=== PATIENT | female | born 1965 | race Caucasian/White ===

== ENCOUNTER 2016-07-05 20:45 | Emergency (ER) | payer OTHER ==
[~2016-07-05] VITALS: Ht 162.6 cm; Wt 70.4 kg
[~2016-07-05 20:45] MED LIST: ESTR0.5T PO; PREG50CA PO; TRAM50TA4 PO
--- NOTE | 2016-07-05 20:45 | NUR ---
TRIAGE NOTE PT BROUGHT TO ED BY [facility] FROM HER TRUCK THAT WAS ON [place]IDE OF THE [place]. PT IS VISITING HER DAUGHTER WHO LIVES IN [place] WHEN SHE STARTED GETTING A MIGRAINE. PT HAS MIGRAINES FREQUENTLY AND SHE IS CURRENTLY OUT OF [facility]. SHE STARTED HAVING THE PAIN ABOUT 4-5 HOURS AGO AND THE PAIN IS ON THE RIGHT SIDE OF HER HEAD. EMS REPORTS A WELDING MACHINE TENDER FOUND HER LAYING IN HER TRUCK ALONG THE H[place] ON HER WAY HERE. SHE REPORTS SHE DEVELOPED PHOTO AND SOUND SENSITIVITY AND COULD NO LONGER DRIVE. EMS STARTED IVL IN THE LEFT AC AND IV NS INFUSING, 300CC INFUSED LOGISTICS SUPPLY OFFICER PT WAS ALSO GIVEN ZOFRAN 4MG IV AND FENTANYL 50MG IV BY EMS LOGISTICS SUPPLY OFFICER [facility]
--- OUTSIDE RECORDS SUMMARY | 2016-07-05 20:49 | XMS REPORT | Continuity of Care Document ---
Author Author [facility] Organization [facility] Address Unknown Phone Unavailable Support Name Relationship Address Phone ROBIN VASQUEZ DO Caregiver [facility] [address] [place] [address] THOMAS SAMSON Next Of Kin [address] [place] [address] CP Insurance Providers Payer Name Policy Number Subscriber Name Relationship [employer] Ppo/Open Choice [id number] Lynnette Sinclair 17 Self Advance Directives Directive Response Recorded Date/Time Advanced Directives Type None 10/19/13 5:50pm Problems Medical Problems Problem Onset Date Status Headache Unknown Active Headache Unknown Active Medications Medication Dose Route Sig Days/Qty Instructions Order Date Discontinued Date Status Tramadol HCl 1 Tab PO FOUR TIMES DAILY Take 1 tablet, by mouth, 4 times a day. 10/19/13 Active Estradiol 1 Tab PO DAILY 10/19/13 Active Pregabalin 50 Mg PO NEEDED 10/19/13 Active Social History Social History Problem Response Recorded Date/Time Smoking Status Never smoker 10/19/2013 7:40pm Hx Alcohol Use Yes 10/19/2013 7:40pm Hospital Discharge Instructions No hospital discharge instructions. Plan of Care No plan of care. Functional Status Query Response Date Recorded Physical Hygiene Self October 19, 2013 7:40pm Disabilities None October 19, 2013 7:40pm Devices Used None October 19, 2013 7:40pm Dressing Self October 19, 2013 7:40pm Ambulation Self October 19, 2013 7:40pm Diet Self October 19, 2013 7:40pm Mental Status Alert October 19, 2013 7:43pm Disabilities None October 19, 2013 7:40pm Devices Used None October 19, 2013 7:40pm Physical Hygiene Self October 19, 2013 7:40pm Dressing Self October 19, 2013 7:40pm Ambulation Self October 19, 2013 7:40pm Diet Self October 19, 2013 7:40pm Allergies, Adverse Reactions, Alerts Allergen Type Severity Reaction Status Last Updated No Known Allergies Active 10/19/13 Immunizations Name Given Type Hx Influenza Vaccination No Historical Hx Influenza Vaccination No Historical Vital Signs Acute Vital Signs Vital Response Date/Time Temperature (Fahrenheit) 95.3 deg F (96.8 - 99.1) Temperature (Calculated Celsius) 35.73084 degrees C (36.0 - 37.3) Pulse Rate (adult) 66 bpm (60 - 100) Respiratory Rate 18 breaths/min (10 - 20) O2 Sat by Pulse Oximetry 98 % (90 - 100) Blood Pressure 144/80 mm Hg Height 5 ft 4 in Weight 144 lb Body Mass Index 24.0 kg/m^2 Results Test Source Date Result Interp. Ref. Range Comments Alanine Aminotransferase (ALT/SGPT) October 19, 2013 6:26pm 37 U/L N 9- 52 Albumin October 19, 2013 6:26pm 4.5 G/DL N 3.5-5.0 Albumin/Globulin Ratio October 19, 2013 6:26pm 1.7 RATIO N 1.1-2.2 Alkaline Phosphatase October 19, 2013 6:26pm 112 U/L N 38-126 Anion Gap October 19, 2013 6:26pm 13 MEQ/L N 5-15 Aspartate Amino Transf (AST/SGOT) October 19, 2013 6:26pm 24 U/L N 14-36 BUN/Creatinine Ratio October 19, 2013 6:26pm 16 RATIO N 6-26 Basophils # (Auto) October 19, 2013 6:26pm 0.0 T/MM3 N 0-0.2 Basophils (%) (Auto) October 19, 2013 6:26pm 0.7 % N 0-2 Blood Urea Nitrogen October 19, 2013 6:26pm 11.0 MG/DL N 7-17 C-Reactive Protein October 19, 2013 6:26pm < 5.0 MG/L 0-9 Calcium Level October 19, 2013 6:26pm 9.4 MG/DL N 8.4-10.2 Calculated Osmolality October 19, 2013 6:26pm 280 MOSM/KG N 261-280 Carbon Dioxide Level October 19, 2013 6:26pm 31 MEQ/L H 22-30 Chloride Level October 19, 2013 6:26pm 102 MEQ/L N 98-107 Creatinine October 19, 2013 6:26pm 0.7 MG/DL N 0.7-1.2 Eosinophils # (Auto) October 19, 2013 6:26pm 0.1 T/MM3 N 0-0.5 Eosinophils (%) (Auto) October 19, 2013 6:26pm 1.7 % N 0-4 Erythrocyte Sedimentation Rate October 19, 2013 6:26pm 8 MM/HR N 0-20 Globulin October 19, 2013 6:26pm 2.7 G/DL N 2.4-3.6 Glucose Level October 19, 2013 6:26pm 105 MG/DL N 65-110 Hematocrit October 19, 2013 6:26pm 39.6 % N 36-46 Hemoglobin October 19, 2013 6:26pm 13.5 GM/DL N 12-16 Lymphocytes # (Auto) October 19, 2013 6:26pm 2.1 T/MM3 N 1-4.8 Lymphocytes (%) (Auto) October 19, 2013 6:26pm 34.3 % N 23-45 Mean Corpuscular Hemoglobin October 19, 2013 6:26pm 32.3 UUG N 26-34 Mean Corpuscular Hemoglobin Concent October 19, 2013 6:26pm 34.1 GM/DL N 31-37 Mean Corpuscular Volume October 19, 2013 6:26pm 94.7 UM3 N 80-100 Mean Platelet Volume October 19, 2013 6:26pm 10.1 UM3 N 9.4-12.4 Monocytes # (Auto) October 19, 2013 6:26pm 0.5 T/MM3 N 0-0.8 Monocytes (%) (Auto) October 19, 2013 6:26pm 7.7 % N 0-9.0 Neutrophils # (Auto) October 19, 2013 6:26pm 3.3 T/MM3 N 1.8-7.7 Neutrophils (%) (Auto) October 19, 2013 6:26pm 55.4 % N 33-66 Platelet Count October 19, 2013 6:26pm 244 T/MM3 N 130-400 Potassium Level October 19, 2013 6:26pm 3.7 MEQ/L N 3.6-5 RDW Standard Deviation October 19, 2013 6:26pm 44.3 FL N 36.9-50.2 Red Blood Count October 19, 2013 6:26pm 4.18 M/MM3 N 4.00-5.20 Sodium Level October 19, 2013 6:26pm 146 MEQ/L H 134-144 Total Bilirubin October 19, 2013 6:26pm 0.40 MG/DL N 0.20-1.30 Total Protein October 19, 2013 6:26pm 7.2 G/DL N 6.3-8.2 White Blood Count October 19, 2013 6:26pm 6.0 T/MM3 N 4.5-11.0 Chemistry Specimen Hemolysis October 19, 2013 6:26pm < 15 0-25 0-25: No Hemolysis.26-70: Slight Hemolysis - can falsely elevate K and Urine Protein. 71-285: Moderate Hemolysis - can falsely elevate K, Troponin I, CA 19-9, PTH, CSF GLucose, and Urine Protein, and can falsely decrease Phenytoin. 286-999: Gross Hemolysis - can falsely elevate K, Troponin I, CA 19-9, PTH, CSF Glucose, and Urine Protine, and can falsely decrease Phenytoin. Recommend specimen recollection. Turbidity October 19, 2013 6:26pm < 20 0-20 Glomerular Filtration Rate Calc October 19, 2013 6:26pm 89 - Immature Granulocyte # (Auto) October 19, 2013 6:26pm 0.01 T/MM3 N 0.00- 0.03 Immature Granulocyte % (Auto) October 19, 2013 6:26pm 0.2 % N 0.0-0.5 Icterus Index October 19, 2013 6:26pm < 2 0-7 Procedures No known history of procedures. Encounters Encounter Location Date/Time Departed Emergency Room [facility] 10/19/13 5:43pm Recent Diagnosis
[2016-07-05 20:54] VITALS: TEMP 97.5; Ht 162.6 cm; Wt 70.4 kg
[2016-07-05] MEDS ORDERED: DiphenhydrAMINE 50 MG/ML INJECTION IV ONE (21:15)
[2016-07-05] MEDS ORDERED: PROMETHAZINE 25 MG INJECTION IV ONE (21:15)
[2016-07-05] MEDS ORDERED: BUTALBITAL/APAP/CAFFEINE TABLET PO ONE (21:15)
--- OUTSIDE RECORDS SUMMARY | 2016-07-05 21:18 | XMS REPORT | Continuity of Care Document ---
Author Author [facility] Organization [facility] Address Unknown Phone Unavailable Support Name Relationship Address Phone ROBIN VASQUEZ DO Caregiver [facility] [address] [place] [address] THOMAS SAMSON Next Of Kin [address] [place] [address] CP Insurance Providers Payer Name Policy Number Subscriber Name Relationship [employer] Ppo/Open Choice [id number] Lynnette Sinclair 17 Self Advance Directives Directive [...] F (96.8 - 99.1) Temperature (Calculated Celsius) 35.23394 degrees C (36.0 - 37.3) Pulse Rate [...] Encounters Encounter Location Date/Time Departed Emergency Room [facility] 10/19/13 5:43pm Recent Diagnosis
--- NOTE | 2016-07-05 21:33 | ERPDOC ---
Departure Disposition Decision Date: July 05, 2016 Disposition Decision Time: 22:52 Disposition: 01 DISCHARGED HOME, SELF-CARE Impression Impression Impression: Primary Impression: Migraine headache Qualified Codes: G43.111 - Migraine with aura, intractable, with status migrainosus Severity: Severe Condition: Improved Seen By: Physician only Referrals: YOUR PHYSICIAN 1 Week Patient Instructions: Migraine Headache (ED) Problems/Meds/Labs Reviewed?: Yes Medications reviewed and manag: Yes Additional Instructions: Your migraine has been treated. Take the imitrex at the first sign of a migraine ; uses the zofran as needed for nausea. Follow up care ordered?: Yes Mental Status: Alert, Oriented Scripts Ondansetron (Ondansetron Odt) 4 Mg Tab.rapdis 1 TAB PO Q6-8HPRN, #16 TAB Prov: DO 07/05/16 Sumatriptan Succinate (Sumatriptan Succinate) 50 Mg Tablet 50 MG PO PRN, #9 TAB Prov: DO 07/05/16 HPI - Headache General Chief Complaint: Headache Stated Complaint: MIGRAINE Time Seen by Provider: 21:09 Source: patient, family Exam Limitations: no limitations HPI - Headache Initial Comments 50yo woman presented to the ER by EMS for migraine MORAN. Pt has been driving all day from [place] to see her daughter in [place], [place]. After passing [place], the MORAN got precipitously worse. Pt pulled over and the [employer] retail loan officer evaluated pt, then called EMS to transport her to [facility]. Pt has had a few migraine MORAN's, rarely. This is similar to her prior HAs. Occurred At: other Onset: Rapid Duration: 4-6 hrs Pain Scale: Now & Worst: 10/10 Severity/Quality: severe, pressure, throbbing Location: temporal, occipital Prior Headaches/Recent Trauma: occasional headaches Modifying Factors: immobilization, medication, rest, No: exposure to light, movement Associated Symptoms: nausea/vomiting Hx of Similar Symptoms: Yes Allergies: Coded Allergies: No Known Allergies (Unverified , 07/05/16) Past History Past Medical History Neurological: migraines, other Musculoskeletal: back pain Surgical History General: appendix Reproductive/: , hysterectomy Family History Family PMH: FOUND: hypertension Vaccines Hx Influenza Vaccination: No Review of Systems GI Upper Abdomen: nausea, vomiting Neurological General: headache All other Systems All Other Systems: Reviewed and Negative Physical Exam General General Nourishment: well nourished, well developed, appears stated age, no acute distress, adult, obese General Body Habitus: well groomed Vitals and Pain Weight: Kilograms: Height (feet): 5 Height (inches): 4 Triage Pain Scale: RN VS reviewed by Provider: Yes Normal Exams: Head: Normocephalic w/o trauma Eyes: Pupils are PERRLA w/ EOMI, No scleral icterus, irritation ENMT: No facial trauma, nasal exudates, pharyngeal erythema Neck: Full range of motion, without adenopathy, JVD Chest/Resp: Clear all bailon, with good airflow, and symmetry bilaterally CV: Regular rate and rhythm, without murmur or gallop, Pulses 2+ all extremities Lymphatic: No lymphadenopathy Musculoskeletal: No tenderness, or deformity noted Integumentary: No rashes, hives, or bruising noted Neurologic: Patient is alert, and oriented Psychiatric: Patient exhibits, appropriate attention Differential Diagnoses Considering: Headache, Headache - Migraine, Headache - Tension/Muscle, Sinusitis - Sphenoid, Sinusitis - Maxillary, Viral Syndrome Progress Results/Orders Orders Procedure Category Date Status Time Butalb/Apap/Caffeine PHA 07/05/16 Complete (Fioricet) 21:15 Promethazine PHA 07/05/16 Complete (Phenergan) 21:15 Diphenhydramine PHA 07/05/16 Complete (Benadryl) 21:15 Iv Lock (Ed Only) EDM 07/05/16 Transmitted 21:25 Carboxyhemoglobin LAB 07/05/16 Complete Lab Results Laboratory Tests Test 07/05/16 22:37 Carboxyhemoglobin 0.0% Medications Current ED Medications Acetaminophen/ Butalbital/ Caffeine (Fioricet) 1 tab O ONCE PO Last administered on 07/05/16 21:34; Start 07/05/16 at 21:15; Stop 07/05/16 at 21:16 ; Status DC Promethazine HCl (Phenergan) 25 mg O ONCE IV Last administered on 07/05/16 21 :24; Start 07/05/16 at 21:15; Stop 07/05/16 at 21:16; Status DC Diphenhydramine HCl (Benadryl) 50 mg O ONCE IV Last administered on 07/05/16 21:22; Start 07/05/16 at 21:15; Stop 07/05/16 at 21:16; Status DC Progress Progress Pt now at 2/10 MORAN pain; ready to depart. Daughter requesting rx for anti-emetic and abortive for migraines. Discussed dx, prognosis, tx, and need for f/u. Pt and daughter voiced understanding. DEONTE LAM DO July 05, 2016 21:33
[2016-07-05] MEDS ORDERED: SUMA50TA18 PO (22:57)
[2016-07-05] MEDS ORDERED: ONDA4TAB10 PO (23:04)
[2016-07-05 23:24] VITALS: BP 167/84; PULSE 75; RESP 16; O2SAT 99
== END 2016-07-05 23:24 | disposition home or self-care (01) ==
LOC: ED 20:45
DX: G43.111 Migraine with aura, intractable, with status migrainosus (principal)
CPT/HCPCS: 36415; 82375; 96374; 96375; 99283; J1200; J2550